=== PATIENT | female | born 1960 | race Caucasian/White ===

== ENCOUNTER 2016-10-27 11:33 | Emergency (ER) | payer OTHER ==
[~2016-10-27] VITALS: Ht 160 cm; Wt 50.0 kg
[~2016-10-27 11:33] MED LIST: ALPR1TAB3 PO; CIMZ200K SC; CYAN1000P IV; CYCL-36 PO; ESTR0.1D3 TD; LORTA5 PO
[2016-10-27 11:36] VITALS: BP 141/91; PULSE 84; RESP 15; TEMP 97.8; O2SAT 100
--- NOTE | 2016-10-27 11:57 | PD ---
Physical Exam Date Seen by Provider: Oct 27, 2016 Time Seen by Provider: 11:53 Narrative 56 year old female presents to the emergency department for evaluation of dizziness, lightheadedness for approximately 2 months, but worsened today. She denies any syncopal episodes. No chest pain. Patient is awaiting bed placement. Data Data Last Documented VS Vital Signs Date Time Temp Pulse Resp B/P Pulse Ox O2 Delivery O2 Flow Rate FiO2 10/27/16 11:36 97.8 84 15 141/91 100 MDM Supervised Visit with KASANDRA: Hermila Cardona Oct 27, 2016 11:57
--- NOTE | 2016-10-27 12:17 | PD ---
HPI Chief Complaint: Dizziness Time Seen by Provider: 12:17 Travel History International Travel<30 days: No Contact w/Intl Traveler<30days: No Traveled to known affect area: No History of Present Illness HPI 56-year-old female presents to the emergency Department with complaint of lightheadedness, dizziness, and shortness of breath that has been going on for the past month or 2 with worsening today. She said she felt like she was going to pass out. Denies syncopal episode. She does have history of anemia and Crohn's disease. History of blood transfusions and iron transfusions. She has been trying to get into the oncology center for blood transfusions and iron transfusions in the past 2 months, but according to the patient, they have been formed and have not been able to get her in. She denies chest pain. Denies fever, chills, nausea, vomiting, abdominal pain. She has had approximately 20- 30 bowel movements with blood per day for the last 3-4 weeks. She is currently on Levaquin for an ear and eye infection. She is also currently on an antiviral medication for shingles outbreak to her back. History of anemia, Crohn's disease, B12 deficiency's. Allergies to Cipro, Flagyl, methotrexate. Primary care provider is Dr. Johnnie Barros. No other modifying factors or associated signs and symptoms. PFSH Past Medical History Autoimmune Disease: Yes (CROHNS) Anxiety: Yes Cancer: No Cardiovascular Problems: No Diminished Hearing: Yes (HARD OF HEARING BILATERAL) Endocrine: No Genitourinary: No Implanted Vascular Access Dvce: No Neurologic: Yes Psychiatric: Yes Reproductive: No Respiratory: No Migraines: Yes Menopausal: Yes Past Surgical History Abdominal Surgery: Yes (right colectomy x6, hernia repair) Appendectomy: Yes Ear Surgery: Yes ( ) Gynecologic Surgery: Yes (hysterectomy) Hysterectomy: Yes Other Surgery: Yes (LUMPECTOMY) Social History Alcohol Use: Yes (RARE) Tobacco Use: No Substance Use: No Allergies-Medications (Allergen,Severity, Reaction): Coded Allergies: Cipro (Verified Allergy, Severe, RASH/SOB, 10/27/16) RASH/SOB Celebrex (Verified Allergy, Unknown, DOES NOT REMEMBER, 10/27/16) DOES NOT REMEMBER, WAS 15 YRS AGO Flagyl (Verified Adverse Reaction, Severe, VOMIT, 10/27/16) VOMIT Methotrexate (Verified Adverse Reaction, Intermediate, PASSED OUT, 10/27/16) PASS OUT. LOW CBC AND B12 COUNT. Uncoded Allergies: 6MP (Adverse Reaction, Severe, 06/20/13) VOMITING, LOW BLOOD COUNT Reported Meds & Prescriptions Reported Meds & Active Scripts Active [place] 5/325 (Hydrocodone/Acetaminophen 5/325) 5 mg/325 mg Tab 1 Tab PO Q4H PRN Flexeril (Cyclobenzaprine HCl) 10 Mg Tab 10 Mg PO TID PRN Reported Cimzia (Certolizumab Pegol) 200 Mg/Ml Kit 200 Mg SC MONTHLY Cobal-1000 (Cyanocobalamin) 1,000 Mcg Inj 1,000 Mcg IV MONTHLY Hydrocodone/Acetaminophen 5 mg/325 mg 1 Tab 1 Tab PO Q4H PRN Estradiol 0.1 Mg Dis 1 Patch TD Q7D Alprazolam 1 Mg Tab 1 Mg PO HS Review of Systems Except as stated in HPI: all other systems reviewed are Neg Physical Exam Narrative GENERAL: Well-nourished, well-developed female patient, in no acute distress SKIN: Warm and dry. No pale appearance. HEAD: Atraumatic. Normocephalic. EYES: Pupils equal and round. No scleral icterus. No injection or drainage. ENT: Mucosa pink and moist. Airway patent. NECK: Trachea midline. CARDIOVASCULAR: Regular rate and rhythm. No murmur appreciated. RESPIRATORY: No accessory muscle use. Clear to auscultation. Breath sounds equal bilaterally. GASTROINTESTINAL: Abdomen soft, non-tender, nondistended. Hepatic and splenic margins not palpable. Bowel sounds are active 4 quadrants. MUSCULOSKELETAL: No obvious deformities. No clubbing. No cyanosis. No edema. NEUROLOGICAL: Awake and alert. Oriented 3. No obvious cranial nerve deficits. Motor grossly within normal limits. Normal speech. PSYCHIATRIC: Appropriate mood and affect; insight and judgment normal. Data Data Last Documented VS Vital Signs Date Time Temp Pulse Resp B/P Pulse Ox O2 Delivery O2 Flow Rate FiO2 10/27/16 13:19 87 20 139/89 99 10/27/16 12:40 Room Air 10/27/16 11:36 97.8 Orders Electrocardiogram (10/27/16 12:14) Basic Metabolic Panel (Bmp) (10/27/16 12:14) Complete Blood Count With Diff (10/27/16 12:14) Ecg Monitoring (10/27/16 12:14) Iv Access Insert/Monitor (10/27/16 12:14) Oximetry (10/27/16 12:14) Labs Laboratory Tests Test 10/27/16 12:35 White Blood Count 7.9 TH/MM3 Red Blood Count 3.63 MIL/MM3 Hemoglobin 10.7 GM/DL Hematocrit 31.7 % Mean Corpuscular Volume 87.2 FL Mean Corpuscular Hemoglobin 29.4 PG Mean Corpuscular Hemoglobin 33.7 % Concent Red Cell Distribution Width 13.9 % Platelet Count 299 TH/MM3 Mean Platelet Volume 6.9 FL Neutrophils (%) (Auto) 66.2 % Lymphocytes (%) (Auto) 26.9 % Monocytes (%) (Auto) 5.4 % Eosinophils (%) (Auto) 1.2 % Basophils (%) (Auto) 0.3 % Neutrophils # (Auto) 5.2 TH/MM3 Lymphocytes # (Auto) 2.1 TH/MM3 Monocytes # (Auto) 0.4 TH/MM3 Eosinophils # (Auto) 0.1 TH/MM3 Basophils # (Auto) 0.0 TH/MM3 CBC Comment DIFF FINAL Differential Comment Sodium Level 136 MEQ/L Potassium Level 4.0 MEQ/L Chloride Level 103 MEQ/L Carbon Dioxide Level 24.5 MEQ/L Anion Gap 9 MEQ/L Blood Urea Nitrogen 10 MG/DL Creatinine 0.91 MG/DL Estimat Glomerular Filtration 63 ML/MIN Rate Random Glucose 83 MG/DL Calcium Level 8.6 MG/DL MDM Medical Decision Making Medical Screen Exam Complete: Yes Emergency Medical Condition: Yes Medical Record Reviewed: Yes Differential Diagnosis Anemia, dehydration, electrolyte imbalance, arrhythmia Narrative Course 56-year-old female with history of anemia and Crohn's disease presents with dizziness and lightheadedness without syncopal episode. Patient placed on cardiopulmonary monitor. IV site obtained. Labs and ordered. 1244: EKG with normal sinus rhythm. Labs are unremarkable. Patient was offered a steroid treatment for her Crohn's and she declined. The patient will not take iron supplementation either. Instructed to follow-up with gastroenterology. Patient verbalizes understanding and agreement with treatment plan. Patient is medically cleared and stable for discharge. Discussed reasons to return to the emergency department. Instructed patient to follow up with primary care provider. Patient agrees with treatment plan. The patients vital signs are stable and the patient is stable for outpatient follow-up and treatment. Patient discharged home, stable and in no acute distress. Diagnosis Primary Impression: Lightheaded Additional Impression: Dizziness Referrals: Baggage Screener Primary Care Physician Patient Instructions: Dizziness (ED), General Instructions, Lightheadedness (ED ) Additional Instructions: Follow-up with gastroenterology Follow-up with primary care provider Med/Other Pt SpecificInfo: No Change to Meds, No Meds Exist/No RX given Disposition: 01 DISCHARGE HOME Condition: Stable Barbara Lau [facility] Oct 27, 2016 12:17
[2016-10-27 12:40] VITALS: O2SAT 100
--- NOTE | 2016-10-27 12:43 | PD ---
Data Data Last Documented VS Vital Signs Date Time Temp Pulse Resp B/P Pulse Ox O2 Delivery O2 Flow Rate FiO2 10/27/16 11:36 97.8 84 15 141/91 100 Orders Electrocardiogram (10/27/16 12:14) Basic Metabolic Panel (Bmp) (10/27/16 12:14) Complete Blood Count With Diff (10/27/16 12:14) Ecg Monitoring (10/27/16 12:14) Iv Access Insert/Monitor (10/27/16 12:14) Oximetry (10/27/16 12:14) Labs Laboratory Tests Test 10/27/16 12:35 White Blood Count 7.9 TH/MM3 Red Blood Count 3.63 MIL/MM3 Hemoglobin 10.7 GM/DL Hematocrit 31.7 % Mean Corpuscular Volume 87.2 FL Mean Corpuscular Hemoglobin 29.4 PG Mean Corpuscular Hemoglobin 33.7 % Concent Red Cell Distribution Width 13.9 % Platelet Count 299 TH/MM3 Mean Platelet Volume 6.9 FL Neutrophils (%) (Auto) 66.2 % Lymphocytes (%) (Auto) 26.9 % Monocytes (%) (Auto) 5.4 % Eosinophils (%) (Auto) 1.2 % Basophils (%) (Auto) 0.3 % Neutrophils # (Auto) 5.2 TH/MM3 Lymphocytes # (Auto) 2.1 TH/MM3 Monocytes # (Auto) 0.4 TH/MM3 Eosinophils # (Auto) 0.1 TH/MM3 Basophils # (Auto) 0.0 TH/MM3 CBC Comment DIFF FINAL Differential Comment Sodium Level 136 MEQ/L Potassium Level 4.0 MEQ/L Chloride Level 103 MEQ/L Carbon Dioxide Level 24.5 MEQ/L Anion Gap 9 MEQ/L Blood Urea Nitrogen 10 MG/DL Creatinine 0.91 MG/DL Estimat Glomerular Filtration 63 ML/MIN Rate Random Glucose 83 MG/DL Calcium Level 8.6 MG/DL MDM Supervised Visit with KASANDRA: Yes Differential Diagnosis I, Dr. Pressley, have reviewed the advance practice practioner's documentation and am in agreement, met with the patient face to face, made the diagnosis, and the medical decision making was done by me. *My assessment and Findings: 56-year-old female with history of Crohn's disease here with 3-4 weeks of crampy abdominal pain and rectal bleeding. She is managed by Dr. Moulis GI who has been following all these symptoms but unfortunately patient is attempting to get onto a biologic and is having issues with her insurance company. In the interim she has been having dizziness, describes this as lightheadedness as though she is going to faint and some slight dyspnea with exertion. Clear to auscultation bilaterally, abdominal examination is benign. Suspect anemia, versus electrolyte abnormality and less likely arrhythmia. Twelve-lead EKG shows sinus rhythm without notable ST abnormalities, normal intervals. Laboratory workup shows hemoglobin of 10 otherwise unremarkable. Patient does not want steroids at this point for her Crohn's, will follow-up with her GI physician for further management of this. Encouraged to follow up as an outpatient with primary care provider for further workup of lightheadedness to symptoms persist. Christie Pressley MD Oct 27, 2016 12:42
[2016-10-27 12:51] LABS: AUTOMATED NEUTROPHIL # 5.2 TH/MM3 (1.8-7.7); BASOPHIL % 0.3 % (0.0-2.0); EOSINOPHIL # 0.1 TH/MM3 (0-0.4); EOSINOPHIL % 1.2 % (0.0-4.0); HEMATOCRIT 31.7 % (35.0-46.0); HEMO FLAGS DIFF FINAL; LYMPH % 26.9 % (9.0-44.0); LYMPHOCYTE # 2.1 TH/MM3 (1.0-4.8); MEAN CELL VOLUME 87.2 FL (80.0-100.0); MEAN CORPUSCULAR HEMOGLOBIN 29.4 PG (27.0-34.0); MEAN CORPUSCULAR HGB CONC 33.7 % (32.0-36.0); MONO % 5.4 % (0.0-8.0); NEUT % 66.2 % (16.0-70.0); PLATELET COUNT 299 TH/MM3 (150-450); RED BLOOD COUNT 3.63 MIL/MM3 (4.00-5.30); RED CELL DISTRIBUTION WIDTH 13.9 % (11.6-17.2); WHITE BLOOD COUNT 7.9 TH/MM3 (4.0-11.0)
[2016-10-27 13:07] LABS: BICARBONATE 24.5 MEQ/L (21.0-32.0)
[2016-10-27 13:19] VITALS: BP 139/89
--- NOTE | 2016-10-28 14:37 | EKG ---
Date Performed: 10/27/2016 Time Performed: 12:28:48 PTAGE: 56 years EKG: Sinus rhythm Compared to prior tracing no significant change NORMAL ECG NO PREVIOUS TRACING DOCTOR: Eladia Cruz Interpretating Date/Time 10/28/2016 14:34:35
== END 2016-10-27 13:29 | disposition home or self-care (01) ==
LOC: NEPD 11:33
DX: R42 Dizziness and giddiness (principal); E53.8 Deficiency of other specified B group vitamins; D64.9 Anemia, unspecified; K50.90 Crohn's disease, unspecified, without complications
CPT/HCPCS: 80048; 85025; 93005

== ENCOUNTER 2016-11-07 17:16 | Emergency (ER) | payer OTHER ==
[~2016-11-07] VITALS: Ht 160 cm; Wt 51.0 kg
[2016-11-07 17:19] VITALS: BP 121/69; PULSE 62; RESP 20; TEMP 98; O2SAT 100
[2016-11-07] MEDS ORDERED: FLUORESCEIN SOD 1 MG STRIP EACH EYE ONE (20:00)
[2016-11-07] MEDS ORDERED: PROPARACAINE HCL 0.5% OPHT SOLN 15 ML BTL EACH EYE ONE (20:00)
[2016-11-07] MEDS ORDERED: CIMZ200K SQ (20:27)
[2016-11-07] MEDS ORDERED: ESTR1DIS2 T-DERMAL (20:27)
[2016-11-07] MEDS ORDERED: ALPR1TAB3 PO (20:27)
--- NOTE | 2016-11-07 20:50 | PD ---
HPI Chief Complaint: Eye Problems/Injury Time Seen by Provider: 19:29 Travel History International Travel<30 days: No Contact w/Intl Traveler<30days: No Traveled to known affect area: No History of Present Illness HPI Patient 56-year-old female presents emergency department for evaluation of red eye on the right. Patient states that she's been having some visual difficulties with her right eye for some time and has been following with an etl manager. Patient was seen by her mail list librarian Dr. Ramsay today and she had mentioned that the right eye is starting to get worse and he said she should come to the emergency department to be evaluation for possible ophthalmology consultation. Patient did try to go to her etl manager today but her etl manager keeps limited hours on only. Today is Sunday. Patient denies any increasing pain denies any decreased vision acutely. She follows with a mail list librarian because she is about to begin iron transfusions for anemia. PFSH Past Medical History Autoimmune Disease: Yes (CROHNS) Anxiety: Yes Cancer: No Cardiovascular Problems: Yes (ANEMIA) Chemotherapy: Yes (NOT ACTIVE) Diminished Hearing: Yes (HARD OF HEARING BILATERAL) Endocrine: No Genitourinary: No Implanted Vascular Access Dvce: No Neurologic: Yes Psychiatric: Yes Reproductive: No Respiratory: No Migraines: Yes Menopausal: Yes Past Surgical History Abdominal Surgery: Yes (right colectomy x6, hernia repair) Appendectomy: Yes Ear Surgery: Yes ( ) Gynecologic Surgery: Yes (hysterectomy) Hysterectomy: Yes Other Surgery: Yes (LUMPECTOMY) Social History Alcohol Use: Yes (RARE) Tobacco Use: No Substance Use: No Allergies-Medications (Allergen,Severity, Reaction): Coded Allergies: Cipro (Verified Allergy, Severe, RASH/SOB, 11/07/16) RASH/SOB Celebrex (Verified Allergy, Unknown, DOES NOT REMEMBER, 11/07/16) DOES NOT REMEMBER, WAS 15 YRS AGO Flagyl (Verified Adverse Reaction, Severe, VOMIT, 11/07/16) VOMIT Methotrexate (Verified Adverse Reaction, Intermediate, PASSED OUT, 11/07/16 ) PASS OUT. LOW CBC AND B12 COUNT. Uncoded Allergies: 6MP (Adverse Reaction, Severe, 06/20/13) VOMITING, LOW BLOOD COUNT Reported Meds & Prescriptions Reported Meds & Active Scripts Active Reported Estradiol Patch 84 HR (Estradiol) 0.1 Mg/24 Hr Patch 1 Patch T-DERMAL 2XWEEK Remove old patch and discard when new patch being placed.Change same days each week. Cimzia (2 syringe) Kit Inj (Certolizumab Pegol Inj) 200 Mg/Ml Kit 400 Mg SQ Q14D Administer 2 syringes (400 mg) to separate sites. Alprazolam 1 Mg Tab 1 Mg PO HS PRN Review of Systems Except as stated in HPI: all other systems reviewed are Neg Physical Exam Narrative GENERAL: Well-nourished, well-developed patient. No apparent distress. SKIN: Focused skin assessment warm/dry. HEAD: Normocephalic. EYES: No scleral icterus. No injection or drainage. Patient has subconjunctival hemorrhage on the medial aspect of the right eye. There is no fluorescein uptake. Ruddy-Pen is 18 on the right. Her vision is an intact by confrontation. I checked movements are intact and nonpainful. 20/40 acuity in the right eye 20/20 in the left. NECK: Supple, trachea midline. No JVD or lymphadenopathy. CARDIOVASCULAR: Regular rate and rhythm without murmurs, gallops, or rubs. RESPIRATORY: Breath sounds equal bilaterally. No accessory muscle use. GASTROINTESTINAL: Abdomen soft, non-tender, nondistended. MUSCULOSKELETAL: No cyanosis, or edema. BACK: Nontender without obvious deformity. No CVA tenderness. Data Data Last Documented VS Vital Signs Date Time Temp Pulse Resp B/P Pulse Ox O2 Delivery O2 Flow Rate FiO2 11/07/16 21:00 68 18 111/71 98 11/07/16 17:19 98.0 Orders Proparacaine 0.5% Opth Soln (Alcaine 0.5 (11/07/16 20:00) Fluorescein Strip ([id number] A.T.) (11/07/16 20:00) [facility] Medical Decision Making Medical Screen Exam Complete: Yes Emergency Medical Condition: Yes Differential Diagnosis Subconjunctival hemorrhage, corneal ulcer, corneal abrasion, glaucoma. Narrative Course Patient and physical exam he's an uncomplicated subconjunctival hemorrhage. Her vision is intact. The remainder of her physical exam findings are unremarkable. She appears well in no apparent distress. Discussed with her need follow-up with her etl manager but she is stable for discharge at this time. She will follow-up with her etl manager during his regular business hours on which is in 2 days. Diagnosis Primary Impression: Subconjunctival hemorrhage Qualified Code: H11.31 - Subconjunctival hemorrhage, right Additional Instructions: Call your etl manager for an appointment on . Disposition: 01 DISCHARGE HOME Condition: Wilbert Schrader MD Nov 07, 2016 20:50
[2016-11-07 21:00] VITALS: BP 111/71
== END 2016-11-07 21:25 | disposition home or self-care (01) ==
LOC: NEPD 17:16
DX: H11.31 Conjunctival hemorrhage, right eye (principal); H91.90 Unspecified hearing loss, unspecified ear; Z86.2 Personal history of diseases of the blood and blood-forming organs and certain disorders involving the immune mechanism; Z87.19 Personal history of other diseases of the digestive system; Z86.59 Personal history of other mental and behavioral disorders; Z86.69 Personal history of other diseases of the nervous system and sense organs
CPT/HCPCS: 99282

== ENCOUNTER 2016-12-15 06:30 | Day surgery (SDC) | payer OTHER ==
[~2016-12-15] VITALS: Ht 160 cm; Wt 50.6 kg
[~2016-12-15 06:30] MED LIST changes: -CIMZ200K SC; +CIMZ200K SQ; -CYAN1000P IV; -CYCL-36 PO; -ESTR0.1D3 TD; +ESTR1DIS2 T-DERMAL; -LORTA5 PO
[2016-12-15 06:51] VITALS: BP 121/76; PULSE 63; RESP 20; TEMP 97.6; O2SAT 95
[2016-12-15] MEDS ORDERED: XIFA550T4 PO (06:53)
[2016-12-15] MEDS ORDERED: SERU1POW (06:53)
[2016-12-15] MEDS ORDERED: SODIUM CHLORIDE 0.9% 1000 ML IV SCH (07:00)
[2016-12-15] MEDS: VANCOMYCIN 1000 MG/NS 250 ML - implanted port/tunneled catheter IV SCH ×4 (07:25→09:58)
[2016-12-15] MEDS: ceFAZolin 2 GM PREMIX 50 ML - implanted port/tunneled catheter insertion IV SCH ×2 (07:25→09:58)
[2016-12-15] MEDS: CHLORHEXIDINE GLUCONATE 2 % 1 PACK (2 CLOTHS) TOPICAL SCH ×2 (07:27→09:57)
[2016-12-15] MEDS ORDERED: POVIDONE IODINE 5% (ANTISEPSIS KIT) 4 APPLICATIONS EACH NARE SCH (07:30)
[2016-12-15 07:39] LABS: APTT (PATIENT) 32.7 SEC (24.3-30.1); INTERNATIONAL NORMALIZED RATIO 1.2 RATIO; PROTHROMBIN TIME - PATIENT 13.4 SEC (9.8-11.6)
[2016-12-15 07:44] LABS: AUTOMATED NEUTROPHIL # 4.7 TH/MM3 (1.8-7.7); BASOPHIL # 0.1 TH/MM3 (0-0.2); BASOPHIL % 0.8 % (0.0-2.0); EOSINOPHIL # 0.1 TH/MM3 (0-0.4); EOSINOPHIL % 1.6 % (0.0-4.0); HEMATOCRIT 34.3 % (35.0-46.0); HEMO FLAGS DIFF FINAL; LYMPH % 29.7 % (9.0-44.0); LYMPHOCYTE # 2.3 TH/MM3 (1.0-4.8); MEAN CELL VOLUME 91.3 FL (80.0-100.0); MEAN CORPUSCULAR HEMOGLOBIN 30.6 PG (27.0-34.0); MEAN CORPUSCULAR HGB CONC 33.6 % (32.0-36.0); MONO % 6.7 % (0.0-8.0); NEUT % 61.2 % (16.0-70.0); PLATELET COUNT 299 TH/MM3 (150-450); RED BLOOD COUNT 3.76 MIL/MM3 (4.00-5.30); RED CELL DISTRIBUTION WIDTH 15.2 % (11.6-17.2); WHITE BLOOD COUNT 7.6 TH/MM3 (4.0-11.0)
[2016-12-15] MEDS ORDERED: LIDOCAINE 1%/EPINEPHrine 1:100,000 SOLN 20 ML VIAL ONE (07:55)
[2016-12-15] MEDS ORDERED: MIDAZOLAM HCL 5 MG/5 ML VIAL ONE (08:03)
[2016-12-15] MEDS ORDERED: fentaNYL CITRATE 250 MCG/5 ML AMP ONE (08:03)
--- NOTE | 2016-12-15 08:42 | PD.RAD ---
Post Procedure Progress Note Pre Procedure Diagnosis: (1) Crohns disease of small intestine Post Procedure Diagnosis: (1) Crohns disease of small intestine Procedure Date: December 15, 2016 Supervising Radiologist: Leon Juarez Proceduralist/Assist: RT Tiffany(R) Anesthesia: Conscious Sedation Plan of Activity Patient to Unit: ROPU Patient Condition: Good See PACS Report for procedural detail/treatment Central Venous Access Device Procedure 1 Right Internal Jugular Infusaport Placement single lumen Leon Juarez MD December 15, 2016 08:42
[2016-12-15 08:45] VITALS: BP 101/57; PULSE 68; RESP 20; TEMP 97.9; O2SAT 100
[2016-12-15] MEDS ORDERED: SODIUM CHLORIDE 0.9% FLUSH 10 ML FLUSH IVF PRN (08:45)
[2016-12-15 09:00] VITALS: BP 106/68; PULSE 68; RESP 20; O2SAT 100
[2016-12-15 09:30] VITALS: BP 118/75; PULSE 71; RESP 20; O2SAT 92
[2016-12-15 10:00] VITALS: BP 109/72; PULSE 69; RESP 20; O2SAT 92
[2016-12-15 10:30] VITALS: BP 110/75; PULSE 71; RESP 20; O2SAT 92
[2016-12-15] MEDS ORDERED: ONDANSETRON HCL 4 MG/2 ML VIAL ONE (10:32)
--- NOTE | 2016-12-15 14:40 | RADRPT ---
EXAM DATE/TIME: 12/15/2016 08:05 [place] COMPARISON: No previous studies available for comparison. INDICATIONS : Patient with chronic Anemia. Needs Acess. MEDICAL HISTORY : 1.Crohns 2. anemia 3. Short gut syndrome 4. IBS 5. osteoarthritis SURGICAL HISTORY : 1. ilium resection 2.colectomy 3. melanoma removal 4.hernia repair 5. breast bx 6. lumpectomy ENCOUNTER: Initial ACUITY: 1 week PAIN SCORE: 0/10 FLUORO TIME: 0.3 minutes IMAGE SERIES: 1 SEDATION TIME: 30 minutes ACCESS: Right internal jugular vein SEDATION: 1.) 3 mg midazolam (Versed) IV 2.) 150 mcg fentanyl (Sublimaze) IV Prophylactic antibiotics were administered with appropriate pre-procedure timing. Vancomycin within 2 hours of procedure, Ancef (or alternative) within 1 hour of procedure. DEVICE: 1. 8 Cymraes single lumen Bard Power Port PROCEDURE : 1. Continuous pulse oximetry and EKG monitoring. 2. Intravenous conscious sedation. 3. Ultrasound guidance for venous access. 4. Fluoroscopic guided implantable central venous port placement. The patient was placed supine. The neck was prepped in sterile fashion. Full sterile technique was u sed, including cap, mask, sterile gloves and gown, and a large sterile sheet. Hand hygiene and 2% ch lorhexidine Betadine was utilized per protocol for cutaneous antisepsis with appropriate dry time for site. The skin and subcutaneous tissues were infiltrated with local anesthetic solution. Under direct ultrasound guidance, central venous access was accomplished in the targeted vessel. The ultrasound images depicting access guidance were stored and saved to PACS for permanent record. A s ubcutaneous pocket was created using blunt dissection. The port was introduced to the pocket. The c atheter tubing was fed through a subcutaneous tunnel to the venotomy site. The catheter tubing was c ut to a suitable length and then was introduced through a valved Peel-Away sheath and positioned with catheter tubing tip at the cavo-atrial junction level. The pocket incision was closed with subcutic ular Vicryl suture. Steri-Strips were applied. The port was flushed and locked with heparin solutio n per protocol. Sterile dressing was applied to the site. The patient tolerated the procedure well. Conscious sedation was performed with the prescribed dosages and duration as above in the presence of an independent trained radiology nurse to assist in the monitoring of the patient. EKG and oximetry remained stable throughout the procedure. The patient tolerated the procedure well and there were no complications. The patient was sent to post anesthesia recovery in stable condition. CONCLUSION: Uncomplicated ultrasound and fluoroscopic guided implanted central venous port catheter placement as described in detail above. An 8 Cymraes Power port was placed. Leon Juarez MD on December 15, 2016 at 14:38 Board Certified Radiologist. This report was verified electronically.
== END 2016-12-15 11:08 | disposition home or self-care (01) ==
LOC: HROP 06:30 → HRIP 06:40 → HROP 11:08
PROVIDERS: ATTEND Internal Medicine
DX: D50.9 Iron deficiency anemia, unspecified (principal); K50.90 Crohn's disease, unspecified, without complications
CPT/HCPCS: 36561; 76937; 77001; 85025; 85610; 85730; 99152; 99153; C1788; J0690; J1642; J2250; J2405; J3010; J3370; J7030; J7050

== ENCOUNTER 2018-01-07 06:26 | Day surgery (SDC) | payer OTHER ==
[~2018-01-07] VITALS: Ht 160 cm; Wt 54.5 kg
[~2018-01-07 06:26] MED LIST changes: -CIMZ200K SQ; +SERU1POW; +XIFA550T4 PO
[2018-01-07 07:25] VITALS: BP 117/66; PULSE 42; RESP 18; TEMP 97.5; O2SAT 99
[2018-01-07] MEDS ORDERED: CYAN1TAB24 SQ (07:41)
[2018-01-07] MEDS ORDERED: TRAZ50TA12 PO (07:41)
[2018-01-07] MEDS ORDERED: [UNRECOGNIZED DRUG - CODE] SQ (07:41)
[2018-01-07] MEDS ORDERED: NON-500T13 PO (07:43)
[2018-01-07] MEDS ORDERED: SODIUM CHLORIDE 0.9% 1000 ML IV SCH (08:00)
[2018-01-07] MEDS ORDERED: ceFAZolin 2 GM PREMIX 50 ML - implanted port removal IV SCH (08:00)
[2018-01-07 08:21] LABS: BASOPHIL % 0.7 % (0.0-2.0); EOSINOPHIL # 0.1 TH/MM3 (0-0.4); HEMATOCRIT 37.3 % (35.0-46.0); HEMOGLOBIN 13.1 GM/DL (11.6-15.3); LYMPH % 26.9 % (9.0-44.0); LYMPHOCYTE # 1.6 TH/MM3 (1.0-4.8); MEAN CELL VOLUME 92.9 FL (80.0-100.0); MEAN CORPUSCULAR HEMOGLOBIN 32.6 PG (27.0-34.0); MEAN CORPUSCULAR HGB CONC 35.1 % (32.0-36.0); MEAN PLATELET VOLUME 7.7 FL (7.0-11.0); MONO % 4.2 % (0.0-8.0); MONOCYTE # 0.3 TH/MM3 (0-0.9); NEUT % 66.2 % (16.0-70.0); PLATELET COUNT 189 TH/MM3 (150-450); RED BLOOD COUNT 4.01 MIL/MM3 (4.00-5.30); RED CELL DISTRIBUTION WIDTH 12.2 % (11.6-17.2); WHITE BLOOD COUNT 6.1 TH/MM3 (4.0-11.0)
[2018-01-07 08:39] LABS: INTERNATIONAL NORMALIZED RATIO 1.1 RATIO; PROTHROMBIN TIME - PATIENT 11.2 SEC (9.8-11.6)
[2018-01-07] MEDS ORDERED: LIDOCAINE 1%/EPINEPHrine 1:100,000 SOLN 30 ML VIAL ONE (09:15)
[2018-01-07] MEDS ORDERED: MIDAZOLAM HCL 5 MG/5 ML VIAL IV ONE (09:30)
[2018-01-07] MEDS ORDERED: fentaNYL CITRATE 250 MCG/5 ML AMP IV ONE (09:30)
--- NOTE | 2018-01-07 09:59 | PD.RAD ---
Post Procedure Progress Note Pre Procedure Diagnosis: (1) Crohns disease of small intestine Post Procedure Diagnosis: (1) Crohns disease of small intestine Procedure Date: Jan 07, 2018 Supervising Radiologist: Johnie Martin Proceduralist/Assist: Sascha Garces, RT(R), Chelsey Chun, RT(R) Anesthesia: Local, Conscious Sedation Plan of Activity Patient to Unit: ROPU Patient Condition: Good See PACS Report for procedural detail/treatment Johnie Martin MD Jan 07, 2018 09:59
[2018-01-07 10:00] VITALS: BP 102/59; PULSE 64; RESP 18; TEMP 97.5; O2SAT 100
[2018-01-07 10:15] VITALS: BP 86/72; PULSE 57; RESP 18; O2SAT 99
[2018-01-07 10:45] VITALS: BP 91/54; PULSE 56; RESP 18; O2SAT 99
[2018-01-07 11:15] VITALS: BP 116/59; PULSE 54; RESP 18; O2SAT 99
[2018-01-07 11:45] VITALS: BP 110/48; PULSE 60; RESP 17; O2SAT 95
--- NOTE | 2018-01-07 13:16 | RADRPT ---
INDICATIONS: Patient presents with history of iron deficiency anemia in need of port removal followi ng completion of treatment. CLINICAL DATA: This is the patient's initial encounter. Patient reports that signs and symptoms have been present for > 1 year and indicates a pain score of 0/10. Location: Upper Chest, Laterality: Right MEDICAL/SURGICAL HISTORY: Anemia. Crohn?s disease. Malabsorption syndrome/short gut syndrome.B 12 deficiency.Fatigue.Mild tranaminitis secondary to medication.IBSOsteoarthritis.Osteopenia. Breast biopsy. Colectomy.Sigmoidoscopy.Colonoscopy.Melanoma removal.Hernia repair.Hysterectomy.Lumpectomy.A ppendectomy. COMPARISON: No prior exams available for comparison. FLUORO TIME (min): IMAGE SERIES: 0 ACCESS SITE: SEDATION TIME (min): 30 CONTRAST (cc): MEDICATION(S): 2.5mg midazolam (Versed) IV 125mcg fentanyl (Sublimaze) IV DEVICE(S): . . PROCEDURE: 1. Removal of [id number]. 2. Conscious sedation with continuous EKG and oximetry monitoring. The risk, benefits and potential complications of [id number] removal were discussed. Written conse nt was obtained. The patient was placed supine. The chest wall was prepped in sterile fashion. Full sterile techniqu e was used, including cap, mask, sterile gloves and gown, and a large sterile sheet. Hand hygiene an d 2% chlorhexidine and/or Betadine/alcohol prep was utilized per protocol for cutaneous antisepsis. The skin and subcutaneous tissues were infiltrated with local anesthetic solution. A small incision w as made, the subcutaneous pocket was opened. The port was dissected from the subcutaneous tissues and easily removed in one piece. The pocket incision was closed with subcuticular Vicryl suture. Steri -Strips were applied. Conscious sedation was performed with the prescribed dosages and duration as above in the presence of an independent trained radiology nurse to assist in the monitoring of the patient. EKG and oximetry remained stable throughout the procedure. The patient tolerated the procedure well and there were no complications. The patient was sent to post anesthesia recovery in stable condition. CONCLUSION: 1. Uncomplicated port removal as above. Electronically signed by: Johnie Martin MD 01/07/2018 1:15 PM EDT
== END 2018-01-07 12:10 | disposition home or self-care (01) ==
LOC: HROP 06:26 → HRIP 06:26 → HROP 12:10
PROVIDERS: ATTEND Internal Medicine
DX: Z45.2 Encounter for adjustment and management of vascular access device (principal); D50.9 Iron deficiency anemia, unspecified; E53.8 Deficiency of other specified B group vitamins; K50.00 Crohn's disease of small intestine without complications
CPT/HCPCS: 36590; 85025; 85610; 85730; 99152; 99153; J0690; J2250; J3010